=== PATIENT | female | born 1990 | race African-American/Black ===

== ENCOUNTER 2017-09-13 09:40 | Emergency (ER) | payer OTHER ==
[~2017-09-13] VITALS: Ht 167.6 cm; Wt 112.0 kg
[2017-09-13 09:41] VITALS: BP 138/93; PULSE 79; RESP 13; TEMP 98.5; O2SAT 100
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
[2017-09-13] MEDS ORDERED: IBUP-232 PO (11:25)
== END 2017-09-13 11:45 | disposition home or self-care (01) ==
LOC: NEPD 09:40
DX: S20.222A Contusion of left back wall of thorax, initial encounter (principal); S40.012A Contusion of left shoulder, initial encounter; S40.021A Contusion of right upper arm, initial encounter; V09.9XXA Pedestrian injured in unspecified transport accident, initial encounter
CPT/HCPCS: 71045; 73030; 73060; 99284